=== PATIENT | male | born 1980 | race Caucasian/White ===

== ENCOUNTER 2022-07-28 17:53 | Inpatient (IN) ==
[2022-07-28] MEDS ORDERED: ceFAZolin 2 GM in NS PREMIX 2 GM/100 ML BAG IVPB ONE (19:24)
[2022-07-28] MEDS ORDERED: NS 0.9% 1000 ml BAG 1,000 ML IV ONE (19:24)
[2022-07-28 19:37] LABS: ABS Basophils 0.1 10^3/uL (0.0-0.1); ABS Eosinophils 0.1 10^3/uL (0.0-0.5); ABS Lymphocytes 1.7 10^3/uL (1.0-4.8); ABS Neutrophils 11.7 10^3/uL (1.5-7.6); ABS Nucleated RBC 0.01 10^3/ul; Eosinophil % 0.4 %; Hematocrit 44.2 % (38-53); Hemoglobin 15.4 g/dL (13.2-16.3); Lymphocyte % 11.7 %; Mean Corpuscular Hgb Conc 34.8 g/dL (31-36); Mean Corpuscular Volume 86.1 fL (80-97); Mean Platelet Volume 9.2 fL (7.5-11.2); Nucleated Red Blood Cells % 0.1 /100 WBC (0.0-0.4); Platelet Count 190 10^3/uL (150-450); Red Blood Count 5.13 10^6/uL (4.06-5.63); Red Cell Distribution Width 13.6 % (12-17); White Blood Count 14.5 10^3/uL (3.6-10.2)
[2022-07-28 19:52] LABS: Albumin 4.3 g/dL (3.2-5.2); Albumin/Globulin Ratio 1.5 (1-3); Calcium 9.2 mg/dL (8.6-10.3); Creatinine, Serum 1.18 mg/dL (0.67-1.17); Globulin 2.8 g/dL (2-4); Potassium 3.8 mmol/L (3.5-5.0); Total Bilirubin 1.5 mg/dL (0.2-1.0); Total Protein 7.1 g/dL (6.4-8.9)
[2022-07-28] MEDS ORDERED: ceFAZolin 2 GM/50 ML BAG IV ONE (20:00)
[2022-07-28] MEDS ORDERED: Lorazepam PYXIS KEY PRN (21:29)
[2022-07-28] MEDS ORDERED: LORazepam 2 mg VIAL 1 ml IV PUSH ONE (21:29)
[2022-07-28] MEDS ORDERED: Ondansetron 4 mg VIAL 2 MG/ML 2 ml VIAL IV PRN (21:44)
[2022-07-28 22:04] LABS: C Reactive Protein 162.57 mg/L (<8.01)
[2022-07-29] MEDS: ceFAZolin 2 GM PREMIX 2 GM/50 ML BAG IVPB SCH ×3 (04:47→20:43)
[2022-07-29 06:59] LABS: ABS Lymphocytes 1.1 10^3/uL (1.0-4.8); ABS Monocytes 0.8 10^3/uL (0.0-1.1); ABS Neutrophils 8.6 10^3/uL (1.5-7.6); Eosinophil % 0.3 %; Hemoglobin 13.4 g/dL (13.2-16.3); Lymphocyte % 10.7 %; Mean Corpuscular Hemoglobin 30.2 pg (27-33); Mean Corpuscular Hgb Conc 35.2 g/dL (31-36); Mean Corpuscular Volume 85.8 fL (80-97); Mean Platelet Volume 9.7 fL (7.5-11.2); Platelet Count 156 10^3/uL (150-450); Red Blood Count 4.43 10^6/uL (4.06-5.63); Red Cell Distribution Width 13.1 % (12-17); White Blood Count 10.6 10^3/uL (3.6-10.2)
[2022-07-29 07:43] LABS: Calcium 8.7 mg/dL (8.6-10.3); Creatinine, Serum 1.2 mg/dL (0.67-1.17); Potassium 3.8 mmol/L (3.5-5.0); eGFR CKD-EPI 76.5 (>60)
[2022-07-30] MEDS: ceFAZolin 2 GM PREMIX 2 GM/50 ML BAG IVPB SCH ×3 (04:51→20:38)
[2022-07-30 06:42] LABS: Hematocrit 37.2 % (38-53); Hemoglobin 13.5 g/dL (13.2-16.3); Mean Corpuscular Hemoglobin 30.7 pg (27-33); Mean Corpuscular Hgb Conc 36.3 g/dL (31-36); Mean Corpuscular Volume 84.5 fL (80-97); Mean Platelet Volume 9.3 fL (7.5-11.2); Platelet Count 172 10^3/uL (150-450); Red Cell Distribution Width 13.1 % (12-17); White Blood Count 10.4 10^3/uL (3.6-10.2)
[2022-07-30 06:55] LABS: C Reactive Protein 147.19 mg/L (<8.01); Calcium 8.8 mg/dL (8.6-10.3); Creatinine, Serum 1.15 mg/dL (0.67-1.17); Potassium 3.9 mmol/L (3.5-5.0); eGFR CKD-EPI 80.5 (>60)
[2022-07-30] MEDS ORDERED: Senna TAB 8.6 mg TAB PO PRN ×2 (12:53→13:24)
[2022-07-30] MEDS ORDERED: fentaNYL 100 mcg/2 ml 50 MCG/ML VIAL ONE (14:57)
[2022-07-31] MEDS: ceFAZolin 2 GM PREMIX 2 GM/50 ML BAG IVPB SCH ×3 (04:45→22:16)
[2022-07-31 06:58] LABS: ABS Basophils 0.1 10^3/uL (0.0-0.1); ABS Eosinophils 0.1 10^3/uL (0.0-0.5); ABS Lymphocytes 1.4 10^3/uL (1.0-4.8); ABS Monocytes 0.8 10^3/uL (0.0-1.1); ABS Neutrophils 6.6 10^3/uL (1.5-7.6); Eosinophil % 1.4 %; Hematocrit 39.1 % (38-53); Lymphocyte % 15.1 %; Mean Corpuscular Hemoglobin 30.5 pg (27-33); Mean Corpuscular Hgb Conc 35.7 g/dL (31-36); Mean Corpuscular Volume 85.5 fL (80-97); Mean Platelet Volume 9.4 fL (7.5-11.2); Platelet Count 194 10^3/uL (150-450); Red Blood Count 4.57 10^6/uL (4.06-5.63)
[2022-08-01] MEDS: ceFAZolin 2 GM PREMIX 2 GM/50 ML BAG IVPB SCH ×3 (05:07→21:12)
[2022-08-01] MEDS ORDERED: Bacitracin OINTMENT TUBE TOPICAL ONE (08:25)
[2022-08-02] MEDS: ceFAZolin 2 GM PREMIX 2 GM/50 ML BAG IVPB SCH (05:33)
[2022-08-02 09:56] VITALS: BP 109/73
== END 2022-08-02 11:05 | disposition home or self-care (01) | DRG 710 ==
LOC: ED 17:53 → EDHOLD 17:53 → SUATTDRO 21:44 → MEDTELE 07-29 01:51 → SUATTDRO 07-29 12:00 → MED 07-31 16:45
PROVIDERS: ADMIT Student in an Organized Health Care Education/Training Program; ATTEND Hospitalist

== ENCOUNTER 2023-02-26 11:06 | Inpatient (IN) ==
[2023-02-26] MEDS ORDERED: NS 0.9% 1000 ml BAG 1,000 ML IV ONE (11:44)
[2023-02-26] MEDS ORDERED: Morphine 4 MG/ML VIAL (1 ml) IV ONE ×2 (12:29→15:00)
[2023-02-26] MEDS ORDERED: Acetaminophen IV 1 GM/100ML 1,000 MG/100 ML BAG IV ONE (12:29)
[2023-02-26] MEDS ORDERED: Ondansetron 4 mg VIAL 2 MG/ML 2 ml VIAL IV ONE (12:29)
[2023-02-26 12:32] LABS: ABS Basophils 0.1 10^3/uL (0.0-0.1); ABS Eosinophils 0.2 10^3/uL (0.0-0.5); ABS Lymphocytes 0.4 10^3/uL (1.0-4.8); ABS Monocytes 0.6 10^3/uL (0.0-1.1); ABS Neutrophils 7.7 10^3/uL (1.5-7.6); ABS Nucleated RBC 0.01 10^3/ul; Hematocrit 40.6 % (38-53); Hemoglobin 14.3 g/dL (13.2-16.3); Lymphocyte % 4.9 %; Mean Corpuscular Hemoglobin 29.9 pg (27-33); Mean Corpuscular Hgb Conc 35.2 g/dL (31-36); Mean Corpuscular Volume 84.9 fL (80-97); Mean Platelet Volume 8.3 fL (7.5-11.2); Nucleated Red Blood Cells % 0.1 %/100WBC (0.0-0.8); Platelet Count 219 10^3/uL (150-450); Red Blood Count 4.78 10^6/uL (4.06-5.63); Red Cell Distribution Width 13.1 % (12-17)
[2023-02-26 12:49] LABS: Albumin 3.6 g/dL (3.2-5.2); Albumin/Globulin Ratio 1.4 (1-3); C Reactive Protein 108.24 mg/L (<8.01); Calcium 8.8 mg/dL (8.6-10.3); Creatinine, Serum 1.2 mg/dL (0.67-1.17); Globulin 2.6 g/dL (2-4); Magnesium 1.9 mg/dL (1.9-2.7); Potassium 4.6 mmol/L (3.5-5.0); Total Bilirubin 0.6 mg/dL (0.2-1.0); Total Protein 6.2 g/dL (6.4-8.9); eGFR CKD-EPI 76.5 (>60)
[2023-02-26] MEDS ORDERED: Lactated Ringers 1000 ml BAG 1,000 ML IV ONE ×2 (13:53→16:11)
[2023-02-26] MEDS ORDERED: Iohexol 350 (CONTRAST) 500 ML MDV IV ONE (14:20)
[2023-02-26 14:54] LABS: Erythrocyte Sed Rate 22 mm/Hr (0-14)
[2023-02-26] MEDS ORDERED: Piperacillin/Tazobac 3.375 BAG 3.375 GM/100 ML BAG IV ONE (16:51)
[2023-02-26] MEDS ORDERED: Zosyn per Pharmacy NOTE FOLLOW UP SCH (17:00)
[2023-02-26] MEDS: Enoxaparin 40 MG/0.4 ML SYR SUBCUT SCH (17:14)
[2023-02-26] MEDS: Acetaminophen IV 1 GM/100ML 1,000 MG/100 ML BAG IV PRN (18:29)
[2023-02-26 18:58] LABS: Urine Appearance Cloudy; Urine Bilirubin Negative (Negative); Urine Blood Negative (Negative); Urine Color Yellow; Urine Glucose Negative (Negative); Urine Ketones 1+ (Negative); Urine Nitrite Negative (Negative); Urine Protein Negative (Negative); Urine Specific Gravity 1.043 (1.002-1.030); Urine Urobilinogen Negative (Negative)
[2023-02-26] MEDS: Famotidine IV 10 MG/ML 2 ml VIAL (20 mg) IV SLOW PU SCH (22:29)
[2023-02-26] MEDS: ZOSYN 3.375 GM Q8H per EXTENDED INFUSION IV SCH (22:34)
[2023-02-26] MEDS: Lactated Ringers 1000 ml BAG 1,000 ML IV SCH (22:47)
[2023-02-27] MEDS ORDERED: Ondansetron 4 mg VIAL 2 MG/ML 2 ml VIAL IV ONE (00:46)
[2023-02-27] MEDS: Acetaminophen IV 1 GM/100ML 1,000 MG/100 ML BAG IV PRN ×2 (01:06→17:48)
[2023-02-27] MEDS: Lactated Ringers 1000 ml BAG 1,000 ML IV SCH ×3 (05:31→22:21)
[2023-02-27] MEDS: ZOSYN 3.375 GM Q8H per EXTENDED INFUSION IV SCH (05:31)
[2023-02-27 06:18] LABS: Hematocrit 39.3 % (38-53); Hemoglobin 13.7 g/dL (13.2-16.3); Mean Corpuscular Hemoglobin 29.8 pg (27-33); Mean Corpuscular Hgb Conc 34.9 g/dL (31-36); Mean Corpuscular Volume 85.3 fL (80-97); Mean Platelet Volume 8.7 fL (7.5-11.2); Platelet Count 199 10^3/uL (150-450); Red Blood Count 4.61 10^6/uL (4.06-5.63); Red Cell Distribution Width 13.2 % (12-17); White Blood Count 8.7 10^3/uL (3.6-10.2)
[2023-02-27 09:01] LABS: Calcium 8.2 mg/dL (8.6-10.3); Creatinine, Serum 1.11 mg/dL (0.67-1.17); Potassium 4.3 mmol/L (3.5-5.0)
[2023-02-27] MEDS: Famotidine IV 10 MG/ML 2 ml VIAL (20 mg) IV SLOW PU SCH (10:07)
[2023-02-27] MEDS: Enoxaparin 40 MG/0.4 ML SYR SUBCUT SCH (17:42)
[2023-02-28] MEDS: Lactated Ringers 1000 ml BAG 1,000 ML IV SCH (02:09)
[2023-02-28] MEDS ORDERED: Al Hydrox/Mg Hydrox/Simet LIQ 30 ML UDC PO ONE (04:56)
[2023-02-28] MEDS: Acetaminophen IV 1 GM/100ML 1,000 MG/100 ML BAG IV PRN (05:14)
[2023-02-28 05:34] LABS: ABS Eosinophils 0.2 10^3/uL (0.0-0.5); ABS Lymphocytes 1.1 10^3/uL (1.0-4.8); ABS Monocytes 0.7 10^3/uL (0.0-1.1); ABS Neutrophils 4.5 10^3/uL (1.5-7.6); Eosinophil % 3.4 %; Hematocrit 40.1 % (38-53); Hemoglobin 14.1 g/dL (13.2-16.3); Lymphocyte % 16.4 %; Mean Corpuscular Hemoglobin 29.9 pg (27-33); Mean Corpuscular Hgb Conc 35.2 g/dL (31-36); Mean Corpuscular Volume 84.8 fL (80-97); Mean Platelet Volume 7.9 fL (7.5-11.2); Nucleated Red Blood Cells % 0.1 %/100WBC (0.0-0.8); Platelet Count 217 10^3/uL (150-450); Red Blood Count 4.73 10^6/uL (4.06-5.63); Red Cell Distribution Width 13.2 % (12-17); White Blood Count 6.5 10^3/uL (3.6-10.2)
[2023-02-28 05:50] LABS: Albumin 3.3 g/dL (3.2-5.2); Albumin/Globulin Ratio 1.2 (1-3); C Reactive Protein 136.75 mg/L (<8.01); Calcium 8.5 mg/dL (8.6-10.3); Creatinine, Serum 0.98 mg/dL (0.67-1.17); Globulin 2.8 g/dL (2-4); Potassium 4.2 mmol/L (3.5-5.0); Total Bilirubin 0.5 mg/dL (0.2-1.0); Total Protein 6.1 g/dL (6.4-8.9); eGFR CKD-EPI 97.5 (>60)
[2023-02-28 09:26] LABS: Erythrocyte Sed Rate 16 mm/Hr (0-14)
[2023-02-28] MEDS ORDERED: methylPREDNISolone SOD SUCC 40 mg/ml 1 ml VIAL IV ONE (15:54)
[2023-02-28] MEDS: Enoxaparin 40 MG/0.4 ML SYR SUBCUT SCH (16:12)
[2023-02-28 20:47] LABS: Adenovirus F40/41 Negative (Negative); Astrovirus Negative (Negative); Cryptosporidium species Negative (Negative); Cyclospora cayetanensis Negative (Negative); Entamoeba histolytica Negative (Negative); Enteroaggregative E.coli(EAEC) Negative (Negative); Enteropathogenic Ecoli(EPEC) Negative (Negative); Enterotoxigenic Ecoli(ETEC) Negative (Negative); Norovirus GI/GII Negative (Negative); Plesiomonas shigelloides Negative (Negative); Salmonella species Negative (Negative); Sapovirus Negative (Negative); Shiga toxin producing E. coli Negative (Negative); Shigella/Enteroinvasive E.coli Negative (Negative); Specimen Source STOOL; Vibrio cholerae Negative (Negative); Yersinia species Negative (Negative)
[2023-03-01 07:27] LABS: ABS Monocytes 0.7 10^3/uL (0.0-1.1); ABS Neutrophils 6.3 10^3/uL (1.5-7.6); ABS Nucleated RBC 0.02 10^3/ul; Eosinophil % 0.5 %; Hematocrit 42.7 % (38-53); Mean Corpuscular Hemoglobin 29.4 pg (27-33); Mean Corpuscular Hgb Conc 35.1 g/dL (31-36); Mean Corpuscular Volume 83.8 fL (80-97); Mean Platelet Volume 8.7 fL (7.5-11.2); Nucleated Red Blood Cells % 0.3 %/100WBC (0.0-0.8); Platelet Count 301 10^3/uL (150-450); Red Blood Count 5.09 10^6/uL (4.06-5.63); Red Cell Distribution Width 13.3 % (12-17)
[2023-03-01 08:12] LABS: C Reactive Protein 76.25 mg/L (<8.01); Calcium 8.9 mg/dL (8.6-10.3); Creatinine, Serum 0.81 mg/dL (0.67-1.17); Potassium 4.4 mmol/L (3.5-5.0); eGFR CKD-EPI 111.5 (>60)
[2023-03-01] MEDS ORDERED: methylPREDNISolone SOD SUCC 40 mg/ml 1 ml VIAL IV ONE (09:00)
[2023-03-01 11:00] LABS: Erythrocyte Sed Rate 19 mm/Hr (0-14)
[2023-03-01 15:46] LABS: Calprotectin 218 mcg/g
[2023-03-01] MEDS: Enoxaparin 40 MG/0.4 ML SYR SUBCUT SCH (17:24)
[2023-03-02 06:38] LABS: ABS Lymphocytes 1.4 10^3/uL (1.0-4.8); ABS Monocytes 0.7 10^3/uL (0.0-1.1); ABS Neutrophils 9.2 10^3/uL (1.5-7.6); ABS Nucleated RBC 0.08 10^3/ul; Eosinophil % 0.2 %; Hematocrit 44.1 % (38-53); Hemoglobin 15.4 g/dL (13.2-16.3); Lymphocyte % 12.5 %; Mean Corpuscular Hemoglobin 29.6 pg (27-33); Mean Corpuscular Volume 84.5 fL (80-97); Mean Platelet Volume 8.4 fL (7.5-11.2); Nucleated Red Blood Cells % 0.7 %/100WBC (0.0-0.8); Platelet Count 390 10^3/uL (150-450); Red Blood Count 5.21 10^6/uL (4.06-5.63); Red Cell Distribution Width 13.2 % (12-17); White Blood Count 11.3 10^3/uL (3.6-10.2)
[2023-03-02 06:55] LABS: C Reactive Protein 29.83 mg/L (<8.01); Creatinine, Serum 0.9 mg/dL (0.67-1.17); Magnesium 2.4 mg/dL (1.9-2.7); Potassium 4.5 mmol/L (3.5-5.0)
[2023-03-02 09:29] VITALS: BP 120/84
== END 2023-03-02 13:30 | disposition home or self-care (01) | DRG 249 ==
LOC: EDHOLD 11:06 → ED 11:06 → SUATTDRO 16:48 → MED 22:24
PROVIDERS: ADMIT Internal Medicine; ATTEND Student in an Organized Health Care Education/Training Program